=== PATIENT | female | born 1950 | race Caucasian/White ===

== ENCOUNTER 2016-07-12 10:00 | Inpatient (IN) | payer MEDICARE, OTHER ==
[~2016-07-12] VITALS: Ht 160 cm; Wt 85.7 kg
--- NOTE | ~2016-07-12 | DS ---
PATIENT'S NAME: FRITZ CROCKETT [facility] AGE: 65 Y [address] ROOM: [place] [address] LOCATION: [facility] ADMIT DATE: 07/19/2016 Discharge Summary DISCHARGE DATE: 07/21/2016 FAMILY PHYSICIAN: Shane Carranza MD ATTENDING PHYSICIAN: Bowen Darden PRIMARY DIAGNOSIS: Degenerative joint disease of the left knee. SECONDARY DIAGNOSES: 1. Gastroesophageal reflux disease. 2. Major depression. 3. Hypertension. 4. Hyperlipidemia. PROCEDURE PERFORMED: Left total knee arthroplasty. HISTORY: The patient is a 65-year-old female, who presents with advanced left knee degenerative joint disease and associated severely compromised activities of daily living. The patient has decided to proceed with total knee arthroplasty after having been thoroughly counseled regarding the risks, benefits, limitations and alternatives. Please refer to the outpatient clinic notes and admission history and physical for this patient. HOSPITAL COURSE: The patient underwent a left total knee arthroplasty on 07/19/2016 without complications. Spinal anesthesia plus adductor canal block plus periarticular local anesthesia was utilized. The patient received 24 hours of perioperative prophylactic antibiotics and remained hemodynamically stable, neurovascularly intact throughout the entire hospital course. The postoperative prophylactic deep venous thrombosis prophylaxis consisted of Xarelto, early mobilization and pneumatic compression devices. Daily physical therapy for gait training, transfer training range of motion and quadriceps isometric exercises were received. The patient progressed well in physical therapy. On the date of discharge, 07/21/2016, the incision at the knee was healing well and showed no signs of infection. DISPOSITION: Home. DISCHARGE ACTIVITY: The patient is to bear weight as tolerated with range of motion and quadriceps isometric exercises as instructed. The operative extremity is to be elevated at least 90% of the day. There is to be sterile 4x4 gauze dressings to the incision daily. Dr. Darden is to be notified immediately if there is any increased pain, fevers, chills erythema or drainage. DISCHARGE MEDICATIONS: PATIENT'S NAME: FRITZ CROCKETT [facility] AGE: 65 Y [address] ROOM: [place] [address] LOCATION: [facility] ADMIT DATE: 07/19/2016 Discharge Summary DISCHARGE DATE: 07/21/2016 FAMILY PHYSICIAN: Shane Carranza MD ATTENDING PHYSICIAN: Bowen Darden 1. Xarelto 10 mg 1 tablet p.o. daily, for 12 days for postoperative DVT prophylaxis. 2. Hydromorphone 2 mg 1-2 tablets p.o. every 4 hours p.r.n. for pain. 3. Diazepam 5 mg 1/2 to 1 tablet p.o. every 6 hours p.r.n. for muscle spasms. 4. She is then instructed to continue all her other preadmission medications as instructed by her Internal Medicine doctor. FOLLOWUP: Followup appointment is to be with Dr. Darden's office on 07/26/2016 for her initial postoperative evaluation with x-rays of the knee and suture removal. YAEL STINSON PA-C FOR MD STEPHANIE FERGUSON/michelet /[id number] d: 08/02/16 0448 t: 08/02/16 0911, DISCHARGE SUMMARY
--- NOTE | ~2016-07-12 | OR ---
PATIENT'S NAME: ERINN MALHOTRA [facility] AGE: 65 Y [address] ROOM: [place] [address] LOCATION: [facility] ADMIT DATE: 07/19/2016 OR/Procedure Report DISCHARGE DATE: FAMILY PHYSICIAN: Shane Carranza MD ATTENDING PHYSICIAN: JOSUE COLLIER SURGEON: Josue Collier MD SIDE SHOW ENTERTAINER: 1. HASEEB Grewal. 2. Josue Lawson. DATE OF PROCEDURE: 07/19/2016 PREOPERATIVE DIAGNOSIS: Degenerative joint disease, left knee. POSTOPERATIVE DIAGNOSIS: Degenerative joint disease, left knee. OPERATION: Left total knee arthroplasty with computer navigation. ANESTHESIA: Spinal anesthesia plus adductor canal block plus periarticular local anesthesia (ropivacaine with epinephrine and Toradol). ESTIMATED BLOOD LOSS: Less than 10 mL. DRAIN: None. SPECIMEN: None. COMPLICATIONS: None. IMPLANT SYSTEM: HSTYLE Triathlon. 1. Size 3 left posterior stabilized femoral component. 2. Size 2 universal modular tibial baseplate. 3. A 9 mm posterior stabilized size 2 X3 tibial polyethylene insert. 4. A 32 mm oval X3 patella component. INDICATIONS FOR SURGERY: Ms. Erinn Malhotra is a 65-year-old female who presents with advanced left knee degenerative joint disease and associated severely compromised activities of daily living. The patient has decided to proceed with knee replacement after having been thoroughly counseled regarding the associated risks, benefits, and limitations. We have specifically reviewed the risks and implications of infection, deep venous thrombosis, pulmonary embolism, mortality, neurovascular complications, blood transfusion (and associated potential for disease transmission or transfusion reaction), stiffness, instability, mechanical deterioration of the components (due to wear and or loosening), and the potential need for revision. We have also emphasized the importance of active involvement and compliance with post- operative physical therapy as a means of optimizing range of motion and PATIENT'S NAME: ERINN MALHOTRA [facility] AGE: 65 Y [address] ROOM: [place] [address] LOCATION: [facility] ADMIT DATE: 07/19/2016 OR/Procedure Report DISCHARGE DATE: FAMILY PHYSICIAN: Shane Carranza MD ATTENDING PHYSICIAN: JOSUE COLLIER functional recovery. Informed consent has been granted. DESCRIPTION OF PROCEDURE: The patient was positioned supine after administration of anesthesia and prophylactic antibiotics. A well-padded pneumatic tourniquet was placed around the left proximal thigh, and the left lower extremity was prepped and draped with vigilant sterile technique. The patient's name as well as the intended operative side and procedure were confirmed with a verbal time-out involving myself, the circulating nurse, the scrub nurse, and the anesthesiologist. Examination under anesthesia demonstrated no active skin lesions or masses. There was a mild effusion. There was no erythema. There was no abnormal warmth. Range of motion under anesthesia was from a 2-degree flexion contracture to 130 degrees of flexion. There was no ligamentous insufficiency. The left lower extremity was elevated and exsanguinated with an Esmarch wrap, and the pneumatic tourniquet was inflated to 300mmHg. The knee was approached through a longitudinal midline incision. A medial parapatellar arthrotomy was performed and the patella was everted. Examination of the joint space demonstrated a moderate amount of benign-appearing translucent synovial fluid. There were no loose bodies. There was mild generalized nonproliferative synovitis. Cruciate ligaments were intact. The lateral meniscus was intact. There was mild inner perimeter degenerative tearing of the medial meniscus. There was full-thickness loss of articular cartilage involving 80% of the medial femoral condyle and 75% of the medial tibial plateau. There were small osteophytes at the inferior aspect of the patella, medial femoral condyle, lateral femoral condyle, and medial tibial plateau. There was a 20 x 5 mm diameter region of full-thickness articular cartilage loss at the inferior half of the medial facet of the patella and a 1 cm diameter region of full- thickness articular cartilage loss at the apex of the patella. There was a 2 x 8 mm transversely oriented region of full-thickness articular cartilage loss at the central aspect of the femoral trochlea. There were mild grade 3 degenerative changes at the medial half of the lateral femoral condyle. There were moderate grade 3 degenerative changes at the medial half of the lateral tibial plateau. Remnants of the menisci and cruciate ligaments were excised. The [employer] navigation femoral tracker was pinned in place at the distal aspect of the femoral trochlea. Absence of motion between the femur and the tracking device was confirmed manually and visually. Femoral osseous landmarks were obtained in order to calibrate the computer navigation system. Landmarks included the center of rotation of the ipsilateral hip, the center-point of the distal femur, the femoral AP axis, 57 points on the medial femoral condyle PATIENT'S NAME: ERINN MALHOTRA [facility] AGE: 65 Y [address] ROOM: [id number] [place], [place] [address] LOCATION: [facility] ADMIT DATE: 07/19/2016 OR/Procedure Report DISCHARGE DATE: FAMILY PHYSICIAN: Shane Carranza MD ATTENDING PHYSICIAN: JOSUE COLLIER articular surface, and 57 points on the lateral femoral condyle articular surface. The [employer] computer navigation system was subsequently utilized to position the distal femoral resection block such that the distal femoral resection was performed perfectly perpendicular to the femoral mechanical axis. The distal femoral resection was performed with a TestObject oscillating saw. The [employer]ion computer navigation tibial tracker was pinned in place at the anterior aspect of the tibial plateau. Absence of motion between the tibia and the tracking device was confirmed manually and visually. Tibial osseous landmarks were obtained in order to calibrate the computer navigation system. Landmarks included the center-point of the tibial plateau, the AP tibial axis, 57 points on the medial tibial plateau articular surface, 57 points on the lateral tibial plateau articular surface, the medial malleolus, and the lateral malleolus. The [employer] computer navigation system was subsequently utilized to position the proximal tibial resection block such that the proximal tibial resection was performed perfectly perpendicular to the tibial mechanical axis. The proximal tibial resection was performed with a HSTYLE Precision oscillating saw. Perpendicularity of the tibial resection with respect to the tibial shaft axis was reconfirmed by inserting a spacer- block attached to an extramedullary guide daniel. External rotation of the anterior and posterior femoral resections was set parallel to the epicondylar axis and carefully adjusted in order to create a rectangular flexion gap. The box resection was performed with a reciprocating saw. Anterior and posterior chamfer resections were performed with the oscillating saw. Posterior condyle osteophytes were excised with an osteotome. All other osteophytes were excised with a rongeur. Resection of all remnants of the menisci was reconfirmed. Flexion and extension gaps were confirmed to be symmetric and well balanced with a spacer-block technique. The patella resection was performed with an oscillating saw such that the composite thickness of the reconstructed patella was equivalent to the thickness of the [place] patella. Patella tracking was optimal, and there was no need for a lateral retinacular release. All trial components were removed and all prepared osseous surfaces were thoroughly irrigated with pulsatile saline lavage and dried prior to cementing all three components in a single stage using [employer] Simplex cement containing pre-mixed tobramycin. All extruded excess cement was removed. The entire joint space was thoroughly inspected and thoroughly irrigated with bacteriostatic pulsatile saline lavage to assure that there was no residual debris of any sort. Final range of motion was from full extension (with no passive hyperextension) PATIENT'S NAME: ERINN MALHOTRA [facility] AGE: 65 Y [address] ROOM: [address] [address] LOCATION: [facility] ADMIT DATE: 07/19/2016 OR/Procedure Report DISCHARGE DATE: FAMILY PHYSICIAN: Shane Carranza MD ATTENDING PHYSICIAN: JOSUE COLLIER to 130 degrees of flexion. Patella tracking was reconfirmed to be optimal. There was excellent anteroposterior stability at 90 degrees of flexion. There was less than 1 mm of medial lift-off to valgus stress in full extension. There was less than 1 mm of lateral lift-off to varus stress in full extension. The arthrotomy was closed with multiple simple and [id number] interrupted #1 Vicryl. Subcutaneous tissues were thoroughly re-irrigated with bacteriostatic pulsatile saline lavage. Subcutaneous tissues were re- approximated with simple buried interrupted #0 Vicryl sutures. The skin was closed with simple buried interrupted 2-0 Vicryl sutures followed by surgical katherine. The dressing consisted of Xeroform gauze, 4x4 gauze, ABD pads and two 6-inch Ivan Wraps. There were no intra-operative complications. MD DAVID FERGUSON/michelet /[id number] d: 07/19/161724 t: 07/26/162113, OPERATIVE SUMMARY
[2016-07-12] MEDS ORDERED: LEXAPRO10 MG PO (10:09)
[2016-07-12] MEDS ORDERED: TOPAMAX25 MG PO (10:09)
[2016-07-12] MEDS ORDERED: HYDRODIURIL25 MG PO (10:10)
[2016-07-12] MEDS ORDERED: ASPIRIN EC81 MG PO (10:10)
[2016-07-12] MEDS ORDERED: NEXIUM40 MG PO (10:10)
[2016-07-12] MEDS ORDERED: HYDROCODON-ACE1 EAC6 PO (10:11)
[2016-07-12] MEDS ORDERED: ARIPIPRAZOLE5 MG PO (10:11)
[2016-07-12] MEDS ORDERED: CRESTOR10 MG PO (10:11)
[2016-07-12] MEDS ORDERED: FIBERCON1 TAB PO (10:12)
[2016-07-12] MEDS ORDERED: K-TAB 10MEQ10 MEQ PO (10:13)
[2016-07-12] MEDS ORDERED: SYSTANE 0.3-0.1 EACH OPHTH (10:13)
--- NOTE | 2016-07-19 14:30 | NUR ---
Introduced self/role to patient, also present Teresa Murrieta. She lives with her sister in [place], son lives in [place]. Her sister is taking 5 days off of work to stay home and assist her. After that she will be home in the evenings and night. She has a shower bench, walker and a cane if needed. She could not think of anything else she would need at this time. Added my name to her marker board, will continue to follow.
--- NOTE | 2016-07-19 17:00 | NUR ---
Pt here from PACU at 1210. Last hrly VS for you will be at 1900. VS have been stable. She is on O2 at 2L. Pt spinal has worn off and CSM now WNL. Pt has been up chair, BSC and still in recliner. Uses IS at 2000 and does bed exercises. Incontinent when returned to room and voided x2 since then. Dressing dry and intact. Ice to knee. Pt has left upper arm power glide IV. Taking po fluids well and eating well without nausea. Pt plans to go home with her sister on discharge.
--- NOTE | 2016-07-20 05:32 | NUR ---
Significant Event: Dressing is clean, dry and intact. CSM WNL. Voids without difficulty. 1 assist with transfers. Last Dilaudid at 0455. On room air. Heart last at 55 and bp last was 99/58. Follow up:
--- NOTE | 2016-07-20 14:51 | NUR ---
Significant Event: pt alert and oriented. up with 1 assist to the bathroom. uses walker and ice to knee. dilaudid for pain. will update you with time. home tomorrow Follow up:
--- NOTE | 2016-07-21 04:39 | NUR ---
Significant Event: Dressing is clean, dry and intact. CSM WNL. Voids without difficulty. 1 assist with transfers. Last Dilaudid at 0144. On room air. Possible dismissal. Dilaudid IV at 2142. Follow up:
[2016-07-21] MEDS ORDERED: COLACE100 MG PO (09:50)
[2016-07-21] MEDS ORDERED: MIRALAX17 GM PO (09:51)
[2016-07-21] MEDS ORDERED: XARELTO10 MG PO (09:53)
[2016-07-21] MEDS ORDERED: VALIUM5 MG PO (09:54)
--- NOTE | 2016-07-21 16:46 | NUR ---
Significant Event: Ambulates with SBA and walker. Voids without difficulty. Dilauidid 2mg for pain control. BM this shift. Dressing changed this am, katherine intact. Ez wrap ice at all times. Pankaj education given with dismissal instructions, patient and family state understanding. IV d/cd. Dismissed to home with family. Follow up:
== END 2016-07-21 16:25 | disposition disaster alternative care site (69) | DRG 470 ==
LOC: G3N 07-19 05:43
PROVIDERS: ADMIT Orthopaedic Surgery
PROC: 0SRD0J9 Replacement of Left Knee Joint with Synthetic Substitute, Cemented, Open Approach (ICD-10-PCS; principal; 2016-07-19)
DX: M17.12 Unilateral primary osteoarthritis, left knee (principal); I10 Essential (primary) hypertension; F32.9 Major depressive disorder, single episode, unspecified; E78.5 Hyperlipidemia, unspecified
CPT/HCPCS: C1713; C1751; C1776; J0690; J1030; J1100; J1170; J1885; J2001; J2250; J2795; J7120